=== PATIENT | male | born 1980 | race Caucasian/White ===

== ENCOUNTER 2019-10-11 14:48 | Emergency (ER) | payer SELFPAY ==
[~2019-10-11] VITALS: Ht 165.1 cm; Wt 90.9 kg
[2019-10-11 14:59] VITALS: Ht 165.1 cm; Wt 90.9 kg
[2019-10-11 15:52] LABS: BASOPHILS 0.4 % (0-2); HEMATOCRIT 39.4 % (42.0-54.0); HEMOGLOBIN 13.3 g/dL (13.5-17.5); IMMATURE GRANULOCYTES 0.2 % (0-5); LYMPHOCYTES 16.5 % (15-50); MCH 31.7 pg (26.0-34.0); MCHC 33.8 g/dL (31.0-37.0); MEAN PLATELET VOLUME 9.2 fL (7.4-10.4); MONOCYTES 10.3 % (2-11); NEUTROPHILS 44.6 % (40-80); RBC 4.19 10x6/uL (4.20-6.10); RDW 13.7 % (11.5-14.5); WBC 14.9 10x3/uL (4.8-10.8)
[2019-10-11 15:55] LABS: PLATELET COUNT 390 10x3/uL (130-400)
[2019-10-11 16:05] LABS: ANION GAP 10.8 mmol/L (8-16); CALCIUM 8.5 mg/dL (8.5-10.1); CARBON DIOXIDE 29.6 mmol/L (21.0-32.0); CREATININE - SERUM 1.3 mg/dL (0.6-1.3); POTASSIUM - SERUM 3.4 mmol/L (3.5-5.1)
[2019-10-11 16:10] LABS: ALBUMIN 2.7 g/dL (3.4-5.0); BILIRUBIN - TOTAL 0.25 mg/dL (0.2-1.3); PROTEIN - SERUM 6.8 g/dL (6.4-8.2)
[2019-10-11 17:59] VITALS: BP 138/86
== END 2019-10-11 18:02 | disposition home or self-care (01) ==
LOC: D.ER 14:48
PROVIDERS: Family Medicine
DX: Q82.8 Other specified congenital malformations of skin (principal); L08.9 Local infection of the skin and subcutaneous tissue, unspecified; I10 Essential (primary) hypertension